=== PATIENT | male | born 1965 | race Caucasian/White ===

== ENCOUNTER 2016-05-30 22:15 | Inpatient (IN) | payer BC ==
[~2016-05-30] VITALS: Ht 154.9 cm; Wt 54.0 kg
[2016-05-30 23:08] LABS: AUTOMATED NEUTROPHIL # 8.9 TH/MM3 (1.8-7.7); BASOPHIL # 0.1 TH/MM3 (0-0.2); BASOPHIL % 0.6 % (0.0-2.0); EOSINOPHIL # 0.3 TH/MM3 (0-0.4); EOSINOPHIL % 2.1 % (0.0-4.0); HEMATOCRIT 44.9 % (39.0-51.0); HEMO FLAGS DIFF FINAL; LYMPH % 22.3 % (9.0-44.0); LYMPHOCYTE # 2.8 TH/MM3 (1.0-4.8); MEAN CELL VOLUME 89.4 FL (80.0-100.0); MEAN CORPUSCULAR HEMOGLOBIN 29.6 PG (27.0-34.0); MEAN CORPUSCULAR HGB CONC 33.2 % (32.0-36.0); MONO % 3.8 % (0.0-8.0); NEUT % 71.2 % (16.0-70.0); PLATELET COUNT 338 TH/MM3 (150-450); RED BLOOD COUNT 5.02 MIL/MM3 (4.50-5.90); RED CELL DISTRIBUTION WIDTH 13.3 % (11.6-17.2); WHITE BLOOD COUNT 12.4 TH/MM3 (4.0-11.0)
[2016-05-30 23:32] LABS: ANION GAP 9 MEQ/L (5-15); AST (GOT) 20 U/L (15-37); BICARBONATE 27.9 MEQ/L (21.0-32.0); BLOOD UREA NITROGEN 10 MG/DL (7-18); CHLORIDE 103 MEQ/L (98-107); GLOMERULAR FILTRATION RATE 67 ML/MIN (>89); POTASSIUM 4.2 MEQ/L (3.5-5.1); SODIUM (NA) 140 MEQ/L (136-145)
[2016-05-30 23:33] VITALS: BP 171/108; PULSE 90; RESP 16; TEMP 98.6; O2SAT 100
[2016-05-30 23:35] LABS: ALKALINE PHOSPHATASE 108 U/L (45-117); ALT (GPT) 24 U/L (12-78); TOTAL BILIRUBIN ADULT 0.3 MG/DL (0.2-1.0)
[2016-05-31] MEDS ORDERED: oxyCODONE/ACETAMINOPHEN 10 MG/325 MG TAB PO ONE (00:15)
[2016-05-31] MEDS ORDERED: CLOPIDOGREL 75 MG TAB PO ONE ×2 (00:15→14:45)
--- NOTE | 2016-05-31 00:15 | PD ---
HPI Chief Complaint: Psychiatric Symptoms Time Seen by Provider: 23:57 Travel History International Travel<30 days: No Contact w/Intl Traveler<30days: No Traveled to known affect area: No History of Present Illness HPI 51-year-old male with history of depression, brought in from [facility] under Camacho act for suicidal ideation. The patient has history of aortobifemoral bypass earlier this year as well as left carotid/subclavian artery bypass about 3 weeks ago. He is complaining of pain at both of these areas which has been chronic since his surgeries. He states he has been depressed since his aortobifemoral bypass surgery earlier this year. He denies doing anything to harm himself today. PFSH Social History Tobacco Use: Yes Allergies-Medications (Allergen,Severity, Reaction): Coded Allergies: Lisinopril (Verified Allergy, Severe, Swelling, 05/30/16) Reported Meds & Prescriptions Reported Meds & Active Scripts Active Reported Tizanidine (Tizanidine HCl) 4 Mg Tab 4 Mg PO TID Lortab (Hydrocodone-Acetaminophen) 10-325 Mg Tab 1 Tab PO Q6H PRN Nitroglycerin Lingual [place] (Nitroglycerin) 400 Mcg/Act [place] 1 [place] SL DIRECTED PRN ONE SPRAY NEEDED FOR CHEST PAIN, MAY REPEAT EVERY FIVE MINUTES FOR A TOTAL OF 3 DOSES OR CALL 911 IF NO RELIEF Zolpidem (Zolpidem Tartrate) 10 Mg Tab 10 Mg PO HS PRN Zanaflex (Tizanidine HCl) 4 Mg Cap 4 Mg PO TID Docusate Sodium 100 Mg Cap 100 Mg PO DAILY Wellbutrin SR 12 HR (Bupropion HCl) 150 Mg Tab 150 Mg PO Q12HR Atorvastatin (Atorvastatin Calcium) 40 Mg Tab 40 Mg PO HS Aspirin 81 Mg Chew 81 Mg CHEW DAILY Plavix (Clopidogrel Bisulfate) 75 Mg Tab 75 Mg PO DAILY Review of Systems Except as stated in HPI: all other systems reviewed are Neg Physical Exam Narrative GENERAL: Well-developed, well-nourished, comfortable, no acute distress. SKIN: Focused skin assessment warm/dry. Left lateral neck surgical scar that is well-healed, no signs of infection. There is a large midline abdominal surgical scar that is also well-healed without signs of infection. HEAD: Atraumatic. Normocephalic. EYES: Pupils equal and round. No scleral icterus. No injection or drainage. ENT: No nasal bleeding or discharge. Mucous membranes pink and moist. NECK: Trachea midline. No JVD. CARDIOVASCULAR: Regular rate and rhythm. No murmur appreciated. RESPIRATORY: No accessory muscle use. Clear to auscultation. Breath sounds equal bilaterally. GASTROINTESTINAL: Abdomen soft, non-tender, nondistended. MUSCULOSKELETAL: No obvious deformities. No clubbing. No cyanosis. No edema. NEUROLOGICAL: Awake and alert. No obvious cranial nerve deficits. Motor grossly within normal limits. Normal speech. PSYCHIATRIC: Flat affect. Poor eye contact. Data Data Last Documented VS Vital Signs Date Time Temp Pulse Resp B/P Pulse Ox O2 Delivery O2 Flow Rate FiO2 05/31/16 03:03 89 18 117/70 99 Room Air 05/31/16 00:16 97.9 Orders Complete Blood Count With Diff (05/30/16 22:45) Comprehensive Metabolic Panel (05/30/16 22:45) Salicylates (Aspirin) (05/30/16 22:45) Urinalysis - C+S If Indicated (05/30/16 22:45) Drug Screen, Random Urine (05/30/16 22:45) Tylenol (Acetaminophen) (05/30/16 23:48) Alcohol (Ethanol) (05/30/16 23:48) Clopidogrel (Plavix) (05/31/16 00:15) Oxycodone-Acetamin 10-325 Mg (Percocet 1 (05/31/16 00:15) Psych Screen (05/31/16 04:04) Labs Laboratory Tests Test 05/30/16 05/31/16 05/31/16 22:45 00:32 05:50 White Blood Count 12.4 TH/MM3 Red Blood Count 5.02 MIL/MM3 Hemoglobin 14.9 GM/DL Hematocrit 44.9 % Mean Corpuscular Volume 89.4 FL Mean Corpuscular Hemoglobin 29.6 PG Mean Corpuscular Hemoglobin 33.2 % Concent Red Cell Distribution Width 13.3 % Platelet Count 338 TH/MM3 Mean Platelet Volume 8.3 FL Neutrophils (%) (Auto) 71.2 % Lymphocytes (%) (Auto) 22.3 % Monocytes (%) (Auto) 3.8 % Eosinophils (%) (Auto) 2.1 % Basophils (%) (Auto) 0.6 % Neutrophils # (Auto) 8.9 TH/MM3 Lymphocytes # (Auto) 2.8 TH/MM3 Monocytes # (Auto) 0.5 TH/MM3 Eosinophils # (Auto) 0.3 TH/MM3 Basophils # (Auto) 0.1 TH/MM3 CBC Comment DIFF FINAL Differential Comment Sodium Level 140 MEQ/L Potassium Level 4.2 MEQ/L Chloride Level 103 MEQ/L Carbon Dioxide Level 27.9 MEQ/L Anion Gap 9 MEQ/L Blood Urea Nitrogen 10 MG/DL Creatinine 1.15 MG/DL Estimat Glomerular Filtration 67 ML/MIN Rate Random Glucose 84 MG/DL Calcium Level 9.4 MG/DL Total Bilirubin 0.3 MG/DL Aspartate Amino Transf 20 U/L (AST/SGOT) Alanine Aminotransferase 24 U/L (ALT/SGPT) Alkaline Phosphatase 108 U/L Total Protein 8.0 GM/DL Albumin 4.0 GM/DL Salicylates Level 3.1 MG/DL Acetaminophen Level LESS THAN 2.0 MCG/ML Ethyl Alcohol Level LESS THAN 3 MG/DL Urine Color YELLOW Urine Turbidity CLEAR Urine pH 5.5 Urine Specific [place] 1.028 Urine Protein TRACE mg/dL Urine Glucose (UA) NEG mg/dL Urine Ketones 40 mg/dL Urine Occult Blood NEG Urine Nitrite NEG Urine Bilirubin NEG Urine Urobilinogen 2.0 MG/DL Urine Leukocyte Esterase NEG Urine RBC 1 /hpf Urine WBC 2 /hpf Urine Hyaline Casts 2 /lpf Urine Mucus MANY /lpf Microscopic Urinalysis Comment CULT NOT INDICATED Urine Opiates Screen POS Urine Barbiturates Screen NEG Urine Amphetamines Screen NEG Urine Benzodiazepines Screen NEG Urine Cocaine Screen NEG Urine Cannabinoids Screen NEG MDM Medical Decision Making Medical Screen Exam Complete: Yes Emergency Medical Condition: Yes Differential Diagnosis Suicidal ideation, depression. Narrative Course Vital signs reviewed. Labs reviewed. The patient is medically cleared for psychiatric evaluation and disposition by them. [place] MD May 31, 2016 00:15
[2016-05-31 00:16] VITALS: BP 144/84; PULSE 83; RESP 18; TEMP 97.9; O2SAT 97
[2016-05-31] MEDS ORDERED: PLAV75TA29 PO (01:26)
[2016-05-31] MEDS ORDERED: ATOR40TA16 PO (01:26)
[2016-05-31] MEDS ORDERED: ASPI81CH CHEW (01:26)
[2016-05-31 01:36] LABS: ACETAMINOPHEN LESS THAN 2.0 MCG/ML (10.0-30.0)
[2016-05-31] MEDS ORDERED: BUPR150CR PO (01:39)
[2016-05-31] MEDS ORDERED: DOCU100C PO (01:39)
[2016-05-31] MEDS ORDERED: ZOLP10TA3 PO (01:39)
[2016-05-31] MEDS ORDERED: TIZA4TAB PO (01:39)
[2016-05-31] MEDS ORDERED: NITR400A5 SL (01:39)
[2016-05-31] MEDS ORDERED: HYDR-3535 PO (01:39)
[2016-05-31] MEDS ORDERED: ZANA4CAP PO (01:39)
[2016-05-31 03:03] VITALS: BP 117/70; PULSE 89; RESP 18; O2SAT 99
[2016-05-31 06:16] LABS: BLOOD, URINE NEG (NEG); COMMENT (UR) CULT NOT INDICATED; CULTURE IF INDICATED CULT NOT INDICATED; GLUCOSE,URINE NEG (NEG); HYALINE CAST, URINE 2 /lpf (RARE); KETONE, URINE 40 mg/dL (NEG); MUCUS URINE MANY /lpf (OCC); NITRITE,URINE NEG (NEG); PH, URINE 5.5 (5.0-8.5); URINE COLOR YELLOW (YELLW/STRAW)
[2016-05-31 06:20] LABS: AMPHETAMINE, URINE NEG (NEG); BARBITURATES, URINE NEG (NEG); COCAINE, URINE NEG (NEG)
[2016-05-31] MEDS: buPROPion HCL 150 MG SUSTAINED RELEASE TAB PO SCH ×2 (09:45→21:20)
[2016-05-31] MEDS ORDERED: NITROGLYCERIN 400 MCG/SPRAY 4.9 GM BOTTLE SL PRN ×2 (10:00→14:00)
[2016-05-31] MEDS ORDERED: ZOLPIDEM TARTRATE 10 MG TAB PO PRN ×2 (10:00→14:00)
[2016-05-31] MEDS: ACETAMINOPHEN/HYDROcodone 325 MG/10 MG TAB PO PRN ×3 (10:17→21:21)
[2016-05-31] MEDS: DOCUSATE SODIUM 100 MG CAP PO SCH (11:00)
[2016-05-31 12:45] VITALS: BP 108/59; PULSE 71; RESP 12; TEMP 98
[2016-05-31] MEDS ORDERED: ACETAMINOPHEN/HYDROcodone 325 MG/10 MG TAB PO PRN (14:00)
[2016-05-31] MEDS ORDERED: buPROPion HCL 150 MG SUSTAINED RELEASE TAB PO SCH (14:00)
[2016-05-31] MEDS ORDERED: ASPIRIN 81 MG CHEW TAB CHEW SCH (14:00)
[2016-05-31] MEDS ORDERED: DOCUSATE SODIUM 100 MG CAP PO SCH (14:00)
--- NOTE | 2016-05-31 14:05 | HHI.HP ---
Provisional Diagnosis Admission Date May 31, 2016 at 11:48 [place] I. Major depressive disorder, recurrent, severe without psychosis vs adjustment disorder with depressed mood [place] II. Deferred [place] III. Lower back pain, CABG [place] IV. Poor insight [place] V. 40 Certification of Person's Competence To Provide Express and Informed Consent I have personally examined Karlos Menjivar , a person being served at [facility] on, May 31, 2016 13:49. Express and informed consent means consent voluntarily given in writing, by a competent person, after sufficient explanation and disclosure of the subject matter involved to enable the person to make a knowing and willful decision without any element of force, fraud, deceit, duress, or other form of constraint or coercion. This person is 18 years of age or older, is not now known to be incompetent to consent to treatment with a guardian advocate, and does not have a health care surrogate or proxy currently making medical treatment decisions. I have found this person to be one of the following: [] Competent to provide express and informed consent, as defined above, for voluntary admission to this facility and is competent to provide express and informed consent for treatment. He/she has the consistent capacity to make well reasoned, willful, and knowing decisions concerning his or her medical or mental health treatment. The person fully and consistently understands the purpose of the admission for examination/placement and is fully capable of personally exercising all rights assured [place] Incompetent to provide express and informed consent to voluntary admission, and this is incompetent to provide express and informed consent to treatment. The person must be transferred to involuntary status and a petition for a guardian advocate filed with the Circuit Court. [X] Refusing to provide express and informed consent to voluntary admission but is competent to provide express and informed consent for treatment. The person must be discharged or transferred to involuntary status. Form shall be completed within 24 hours of a person's arrival at the receiving facility and filed in the clinical record of each person: 1. Admitted on a voluntary basis 2. Permitted to provide express and informed consent to his/her own treatment 3. Allowed to transfer from involuntary to voluntary status 4. Prior to permitting a person to consent to his or her own treatment after having been previously found incompetent to consent to treatment. History of Present Illness Capacity: Has Capacity HPI The patient is a 51-year-old man, domicile with a roommate in [place] , single, employed as a pizza deliverer, with history psychiatric history of of depression, no previous psychiatric hospitalizations, no previous suicidal attempts, never Camacho acted before, medical history of history of aortobifemoral bypass earlier this year as well as left carotid/subclavian artery bypass about 3 weeks ago, chronic back pain, who brought in from [facility] under Camacho act for suicidal ideation. Camacho act explicitly stays that patient took his car and called his family told him that he loved them and he was committing suicide before being found by police. On psychiatric evaluation today patient is irritable, reluctant to cooperate, needed multiple redirection to provide information for the psychiatric assessment. He says that he has been very mad with his ex- and his kids because they don't understand him. Patient refused to elaborate about the circumstances that led to suicidal thoughts. He says that he isn't ready to talk about. Patient endorses a lot of pain stating that he has not be treated and given his medication in the hospital. Patient seems to be very upset and acutely distressed.. Patient denies suicidal and homicidal ideation, he denies visual and auditory hallucinations. However, as per nurses patient has been agitated, demanding, very irritable, at times screaming requesting pain medication and food. Review of Systems Constitutional: DENIES: Diaphoretic episodes, Fatigue, Fever, Weight gain, Weight loss, Chills, Dizziness, Change in appetite, Night Sweats Endocrine: DENIES: Heat/cold intolerance, Polydipsia, Polyuria, Polyphagia Eyes: DENIES: Blurred vision, Diplopia, Eye inflammation, Eye pain, Vision loss , Photosensitivity, Double Vision Ears, nose, mouth, throat: DENIES: Tinnitus, Hearing loss, Vertigo, Nasal discharge, Oral lesions, Throat pain, Hoarseness, Ear Pain, Running Nose, Epistaxis, Sinus Pain, Toothache, Odynophagia Respiratory: DENIES: Apneas, Cough, Snoring, Wheezing, Hemoptysis, Sputum production, Shortness of breath Cardiovascular: DENIES: Chest pain, Palpitations, Syncope, Dyspnea on Exertion , PND, Lower Extremity Edema, Orthopnea, Claudication Gastrointestinal: DENIES: Abdominal pain, Black stools, Bloody stools, Constipation, Diarrhea, Nausea, Vomiting, Difficulty Swallowing, Anorexia Musculoskeletal: COMPLAINS OF: Back pain, DENIES: Joint pain, Muscle aches, Stiffness, Joint Swelling, Neck pain Hematologic/lymphatic: DENIES: Bruising, Lymphadenopathy Neurologic: DENIES: Abnormal gait, Headache, Localized weakness, Paresthesias, Seizures, Speech Problems, Tremor, Poor Balance Psychiatric: COMPLAINS OF: Mood changes, Depression, DENIES: Anxiety, Confusion, Hallucinations, Agitation, Suicidal Ideation, Homicidal Ideation, Delusions Past Psych History Violence risk - self (6 mos) Increased Substance Abuse History Drugs/Alcohol past 12 months He denies the use of illicit drugs and alcohol Past Family Social History Coded Allergies: Lisinopril (Verified Allergy, Severe, Swelling, 05/30/16) Reported Medications Tizanidine 4 Mg Tab4 Mg PO TID Ref 0 05/31/16 Hydrocodone-Acetaminophen (Lortab)10-325 Mg Tab1 Tab PO Q6H PRN (PAIN) Ref 0 05/31/16 Nitroglycerin Lingual [place] 400 Mcg/Act Spray1 [place] SL DIRECTED PRN (CHEST PAIN) #1 CONTAINER Ref 0 ONE SPRAY NEEDED FOR CHEST PAIN, MAY REPEAT EVERY FIVE MINUTES FOR A TOTAL OF 3 DOSES OR CALL 911 IF NO RELIEF 05/31/16 Zolpidem 10 Mg Tab10 Mg PO HS PRN (INSOMNIA) Ref 0 05/31/16 Tizanidine (Zanaflex)4 Mg Cap4 Mg PO TID Ref 0 05/31/16 Docusate Sodium 100 Mg [id number] Mg PO DAILY #60 CAP Ref 0 05/31/16 Bupropion HCl ER 12 HR (Wellbutrin SR 12 HR)150 Mg [id number] Mg PO Q12HR Ref 0 05/31/16 Atorvastatin 40 Mg Tab40 Mg PO HS #30 TAB Ref 0 05/31/16 Aspirin 81 Mg Chew81 Mg CHEW DAILY Ref 0 05/31/16 Clopidogrel (Plavix)75 Mg Tab75 Mg PO DAILY #30 TAB Ref 0 05/31/16 Current Medications Medications (Trade) Dose Ordered Sig/Jennifer Route Start Time Stop Time Status Last Admin (Aspirin Chew) 81 mg DAILY PO 06/01/16 10:00 (Lipitor) 40 mg HS PO 05/31/16 21:00 (Wellbutrin Sr) 150 mg Q12H PO 05/31/16 09:45 05/31/16 09:45 (Plavix) 75 mg DAILY PO 06/01/16 09:00 (Colace) 100 mg DAILY PO 05/31/16 11:00 ([place] 10-325 Mg) 1 tab Q6H PRN PO 05/31/16 09:45 05/31/16 10:17 (Nitrolingual Sl [place]) 1 spray UNSCH PRN SL 05/31/16 10:00 (Zanaflex) 4 mg TID PO 05/31/16 13:00 (Ambien) 10 mg HS PRN PO 05/31/16 10:00 Family History He denies Social History Patient was born and raised in [place], he lives with 2 friends in [place], he is employed as a [employer] deliverer, he is , he has 2 kids, his highest level of education is a college degree Physical Exam No agitation, no tremors, no EPS, present Vital Signs Vital Signs Date Time Temp Pulse Resp B/P Pulse Ox O2 Delivery O2 Flow Rate FiO2 05/31/16 03:03 89 18 117/70 99 Room Air 05/31/16 00:16 97.9 Mental Status Examination Appearance man, age appearing, in [facility], good hygiene, he is oppositional, guarded irritable, superficially cooperative Speech: Hesitant, Slow Orientation: x3 Memory: Unremarkable Thought Process: Logical Thought Content: Unremarkable Hallucination Type: None Attention and Concentration: Good Suicidal Ideation: No Previous Suicide Attempts: No Homicidal Ideation: No Insight: Poor Affect: Irritable Mood: Angry Motor Activity: Normal gait Assessment & Plan Problem List: (1) Adjustment disorder with depressed mood Assessment & Plan: The patient is a 51-year-old man, domicile with a roommate in [place], single, 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 Camacho act explicitly says that patient took his car and called his family told him that he loved them and he was committing suicide before being found by police. On psychiatric evaluation today patient is irritable, reluctant to cooperate, needed multiple redirection to provide information for the psychiatric assessment. Patient seems to be mood is regulated and very stressed. He does not elaborate about feelings and emotions that led to suicidal statement and gesture. He is continuously in denial and minimization of depression and suicidality. No collateral information is available at this moment in order to complete a psychiatric assessment. Patient needs psychiatric admission for stabilization and safety at this moment. wireworker intervention to complete a psychosocial assessment, for collateral information, please start a safe discharge plan, for counseling. Patient will participate in individual and group activities. Will start Wellbutrin 150 Chitra twice a day for depression. We'll restart medical medications as per medication reconciliation. Extensive support, motivation psycho location provided. We will consult psychiatry for second opinion, would consult hospitalist to help with underlying medical conditions treatment. ICD Code: F43.21 Assessment & Plan Estimated LOS: Nicho Coelho MD May 31, 2016 14:05
[2016-05-31] MEDS ORDERED: ASPIRIN 81 MG CHEW TAB PO ONE (15:00)
[2016-05-31] MEDS ORDERED: ATORVASTATIN 40 MG TAB PO ONE (15:00)
[2016-05-31 19:17] VITALS: BP 123/62; PULSE 76; RESP 16; TEMP 97.7; O2SAT 96
[2016-05-31] MEDS ORDERED: ATORVASTATIN 40 MG TAB PO SCH ×2 (21:00)
[2016-06-01] MEDS: ACETAMINOPHEN/HYDROcodone 325 MG/10 MG TAB PO PRN ×2 (03:39→09:09)
[2016-06-01 05:28] VITALS: BP 108/59; PULSE 69; RESP 16; TEMP 97.3; O2SAT 97
[2016-06-01] MEDS ORDERED: CLOPIDOGREL 75 MG TAB PO SCH ×2 (09:00)
[2016-06-01] MEDS: DOCUSATE SODIUM 100 MG CAP PO SCH (09:10)
--- NOTE | 2016-06-01 09:16 | PD.CONS ---
Provisional Diagnosis Admission Date May 31, 2016 at 11:48 [place] I. Major depressive disorder, recurrent, severe without psychosis vs adjustment disorder with depressed mood [place] II. Deferred [place] III. Lower back pain, CABG [place] IV. Poor insight [place] V. 40 History of Present Illness Service Psychiatry Consult Requested By Primary Care Physician Unknown HPI The patient is a 51-year-old man, domicile with a roommate in [place] , single, employed as a pizza deliverer, with history psychiatric history of of depression, no previous psychiatric hospitalizations, no previous suicidal attempts, never Camacho acted before, medical history of history of aortobifemoral bypass earlier this year as well as left carotid/subclavian artery bypass about 3 weeks ago, chronic back pain, who brought in from [facility] under Camacho act for suicidal ideation. [employer] act explicitly stays that patient took his car and called his family told him that he loved them and he was committing suicide before being found by police. On psychiatric evaluation today patient is irritable, reluctant to cooperate, needed multiple redirection to provide information for the psychiatric assessment. He says that he has been very mad with his ex- and his kids because they don't understand him. Patient refused to elaborate about the circumstances that led to suicidal thoughts. He says that he isn't ready to talk about. Patient endorses a lot of pain stating that he has not be treated and given his medication in the hospital. Patient seems to be very upset and acutely distressed.. Patient denies suicidal and homicidal ideation, he denies visual and auditory hallucinations. However, as per nurses patient has been agitated, demanding, very irritable, at times screaming requesting pain medication and food. 06/01/16 Above note dictated by Dr. Albert reviewed and agreed with. Patient is a 51- year-old white male admitted to Dr. Albert service under the Camacho act. Patient seen by me with nurse Lakhani, patient depressed with moderate psychomotor retardation continue vague suicidal ideation. Having multiple stressors including recent bypass surgery loss of car conflictual relationship with 17- year-old son. He has no other support group except other children. Dr. Albert is signed first opinion petition supporting Camacho act. I agree. Patient meets criteria for involuntary psychiatric hospitalization under the Camacho act. Thus I will cosign second opinion petition supporting Camacho act Past Family Social History Coded Allergies: Lisinopril (Verified Allergy, Severe, Swelling, 05/30/16) Reported Medications Tizanidine 4 Mg Tab4 Mg PO TID Ref 0 05/31/16 Hydrocodone-Acetaminophen (Lortab)10-325 Mg Tab1 Tab PO Q6H PRN (PAIN) Ref 0 05/31/16 Nitroglycerin Lingual [place] 400 Mcg/Act Spray1 [place] SL DIRECTED PRN (CHEST PAIN) #1 CONTAINER Ref 0 ONE SPRAY NEEDED FOR CHEST PAIN, MAY REPEAT EVERY FIVE MINUTES FOR A TOTAL OF 3 DOSES OR CALL 911 IF NO RELIEF 05/31/16 Zolpidem 10 Mg Tab10 Mg PO HS PRN (INSOMNIA) Ref 0 05/31/16 Tizanidine (Zanaflex)4 Mg Cap4 Mg PO TID Ref 0 05/31/16 Docusate Sodium 100 Mg [id number] Mg PO DAILY #60 CAP Ref 0 05/31/16 Bupropion HCl ER 12 HR (Wellbutrin SR 12 HR)150 Mg Iam955 Mg PO Q12HR Ref 0 05/31/16 Atorvastatin 40 Mg Tab40 Mg PO HS #30 TAB Ref 0 05/31/16 Aspirin 81 Mg Chew81 Mg CHEW DAILY Ref 0 05/31/16 Clopidogrel (Plavix)75 Mg Tab75 Mg PO DAILY #30 TAB Ref 0 05/31/16 Current Medications Medications (Trade) Dose Ordered Sig/Jennifer Route Start Time Stop Time Status Last Admin (Aspirin Chew) 81 mg DAILY PO 06/01/16 10:00 (Lipitor) 40 mg HS PO 05/31/16 21:00 (Wellbutrin Sr) 150 mg Q12H PO 05/31/16 09:45 05/31/16 21:20 (Plavix) 75 mg DAILY PO 06/01/16 09:00 (Colace) 100 mg DAILY PO 05/31/16 11:00 ([place] 10-325 Mg) 1 tab Q6H PRN PO 05/31/16 09:45 06/01/16 03:39 (Nitrolingual Sl [place]) 1 spray UNSCH PRN SL 05/31/16 10:00 (Zanaflex) 4 mg TID PO 05/31/16 13:00 05/31/16 18:00 (Ambien) 10 mg HS PRN PO 05/31/16 10:00 Physical Exam Vital Signs Vital Signs Date Time Temp Pulse Resp B/P Pulse Ox O2 Delivery O2 Flow Rate FiO2 06/01/16 05:28 97.3 69 16 108/59 97 05/31/16 03:03 Room Air I/O 05/31/16 05/31/16 06/01/16 08:00 16:00 00:00 Intake Total 240 ml 600 ml Balance 240 ml 600 ml Mental Status Examination Speech: Hesitant, Slow Orientation: x3 Memory: Unremarkable Thought Process: Logical Thought Content: Unremarkable Hallucination Type: None Attention and Concentration: Good Suicidal Ideation: No Previous Suicide Attempts: No Homicidal Ideation: No Insight: Poor Affect: Irritable Mood: Angry Motor Activity: Normal gait Assessment & Plan Problem List: (1) Adjustment disorder with depressed mood ICD Code: F43.21 Assessment & Plan Estimated LOS: Jeison Peck MD Jun 01, 2016 09:16
[2016-06-01] MEDS ORDERED: ASPIRIN 81 MG CHEW TAB PO SCH (10:00)
--- NOTE | 2016-06-01 12:09 | HHI.DS ---
Psychiatry Discharge Summary Inpatient Psychiatric care?: Yes Advance Directive: No Reason Not Provided: PATIENT DOES NOT HAVE ONE. Mental Health AdvanceDirective: No Health Care Proxy: Yes Admission Admission Date May 31, 2016 at 11:48 Admission Diagnosis: (1) Adjustment disorder with depressed mood ICD Code: F43.21 Brief History The patient is a 51-year-old man, domicile with a roommate in [place] , single, employed as a pizza deliverer, with history psychiatric history of of depression, no previous psychiatric hospitalizations, no previous suicidal attempts, never Camacho acted before, medical history of history of aortobifemoral bypass earlier this year as well as left carotid/subclavian artery bypass about 3 weeks ago, chronic back pain, who brought in from [facility] under Camacho act for suicidal ideation. Camacho act explicitly stays that patient took his car and called his family told him that he loved them and he was committing suicide before being found by police. On psychiatric evaluation today patient is irritable, reluctant to cooperate, needed multiple redirection to provide information for the psychiatric assessment. He says that he has been very mad with his ex- and his kids because they don't understand him. Patient refused to elaborate about the circumstances that led to suicidal thoughts. He says that he isn't ready to talk about. Patient endorses a lot of pain stating that he has not be treated and given his medication in the hospital. Patient seems to be very upset and acutely distressed.. Patient denies suicidal and homicidal ideation, he denies visual and auditory hallucinations. However, as per nurses patient has been agitated, demanding, very irritable, at times screaming requesting pain medication and food. 06/01/16 Above note dictated by Dr. Albert reviewed and agreed with. Patient is a 51- year-old white male admitted to Dr. Albert service under the Camacho act. Patient seen by me with nurse Lakhani, patient depressed with moderate psychomotor retardation continue vague suicidal ideation. Having multiple stressors including recent bypass surgery loss of car conflictual relationship with 17- year-old son. He has no other support group except other children. Dr. Albert is signed first opinion petition supporting Camacho act. I agree. Patient meets criteria for involuntary psychiatric hospitalization under the Camacho act. Thus I will cosign second opinion petition supporting Camacho act Tobacco Use In Past 30 Days: 5 or More Cigarettes/Day Alcohol Use: Never Hospital Course Patient was hospitalized yesterday the med psych unit, intermediate safety measure were put in place, he had an initial psychosocial and psychiatric assessment and was restarted on his medications. Initially patient was irritable, oppositional, refusing to provide significant information was in the assessment. But, next day he was open to talk, a baseline, he was able to clarify the situation that brought into the hospital, he denied depressive symptoms, he denies anxiety, he denied psychosis or preeti. Collateral information from his daughter were obtained. A safe discharge where coordinated and patient was deemed psychiatrically cleared to be discharged. Results Blood Pressure 108 / 59 Vital Signs Date Time Temp Pulse Resp B/P Pulse Ox O2 Delivery O2 Flow Rate FiO2 06/01/16 05:28 97.3 69 16 108/59 97 05/31/16 03:03 Room Air Laboratory Tests Test 05/30/16 05/31/16 05/31/16 22:45 00:32 05:50 White Blood Count 12.4 TH/MM3 (4.0-11.0) Neutrophils (%) (Auto) 71.2 % (16.0-70.0) Neutrophils # (Auto) 8.9 TH/MM3 (1.8-7.7) Estimat Glomerular Filtration 67 ML/MIN (>89) Rate Acetaminophen Level LESS THAN 2.0 MCG/ML (10.0-30.0) Urine Ketones 40 mg/dL (NEG) Urine Mucus MANY /lpf (OCC) Urine Opiates Screen POS (NEG) Summary of Procedures None Pending results at discharge: No Medications # of Antipsychotic meds at D/C: 0 Approp Antipsych med options 1 - Minimum of three failed multiple trials of monotherapy. 2 - Documented plan to taper to monotherapy due to previous use of multiple meds OR cross-taper in progress at D/C. 3 - Documentation of augmentation of Clozapine. 4 - Justification other than those listed in allowable values 1-3, document here : Discharge Discharge Date: Jun 01, 2016 Discharge Diagnosis: (1) Adjustment disorder with depressed mood ICD Code: F43.21 Mental Status Exam at Disch man, short stature, good hygiene, [facility], he is calm and cooperative, his his speech is fluent and spontaneous, his mood is "I feel fine ", affect is euthymic. Thought process is coherent, relevant and logical. Thought content is devoid of suicidal ideation, homicidal ideation, visual and auditory hallucinations. No paranoia, delusions, disorganized thought are present. Insight, impulse control and judgment are good. Memory is intact. Pt Condition on Discharge: Stable Discharge Disposition: Discharge Home Discharge Instructions Diet Instructions: Heart Healthy Diet Activities you can perform: Weight Bearing as [place] Scheduled Appointment: Luiz Kelly Appointment Date: Jun 05, 2016 Appointment Time: 07:30 Discharge Time > 30 minutes Discharge/Advance Care Plan Health Problems: (1) Adjustment disorder with depressed mood Goals to promote your health * To prevent worsening of your condition and complications * To maintain your health at the optimal level Directions to meet your goals Take your medications as prescribed Follow your dietary instruction Follow activity as directed Keep your appointments as scheduled Take your immunizations and boosters as scheduled If your symptoms worsen call your PCP, if no PCP go to Urgent Care Center or Emergency Room For 07/09 questions related to your inpatient stay or results of tests pending at discharge, please contact Dr. Nicho Ye at Smoking is Dangerous to Your Health. Avoid second hand smoking Nicho Ye MD Jun 01, 2016 12:09
== END 2016-06-01 12:40 | disposition home or self-care (01) | DRG 881 ==
LOC: NEPE 22:15 → H4EA 05-31 11:48
PROVIDERS: ADMIT Psychiatry & Neurology Psychiatry; ATTEND Psychiatry & Neurology Psychiatry
DX: F43.21 Adjustment disorder with depressed mood (principal); R45.851 Suicidal ideations; G89.29 Other chronic pain; M54.5 Low back pain
CPT/HCPCS: 80053; 80307; 81001; 85025; 99285